=== PATIENT | male | born 1980 | race Caucasian/White ===

== ENCOUNTER 2017-03-18 02:25 | Emergency (ER) | payer BC ==
[~2017-03-18] VITALS: Ht 167.6 cm; Wt 76.6 kg
[2017-03-18 03:35] LABS: HEMATOCRIT 45.5 % (38.0-50.0); MCH 30.7 PG (29.0-34.0); MCHC 35.6 G/DL (30.0-36.0); MCV 86.3 FL (86-99); MEAN PLAT.VOLUME 9.5 uM^3 (9.0-12.4); PLATELET COUNT 226 K/uL (156-360); RBC DIS.WIDTH-SD 37.9 % (39-53); RED BLOOD COUNT 5.27 M/uL (4.00-5.50); WHITE BLOOD COUNT 10.7 K/uL (4.1-10.2)
[2017-03-18 03:59] LABS: CHLORIDE 103 mEq/L (99-109); POTASSIUM 3.7 mEq/L (3.7-5.4); SODIUM 140 mEq/L (136-147)
[2017-03-18 04:01] LABS: GLUCOSE 97 mg/dL (70-99)
[2017-03-18 04:02] LABS: ANION GAP 16 MEQ/L (2-14)
[2017-03-18 04:04] LABS: SERUM ETHYL ALCOHOL 32 mg/dL
[2017-03-18 04:05] LABS: UREA NITROGEN (BUN) 12 mg/dL (9-23)
[2017-03-18 04:11] LABS: GFR ESTIMATE (CALCULATED) > 59 mL/min/
[2017-03-18 04:46] VITALS: BP 124/73
== END 2017-03-18 04:46 | disposition home or self-care (01) ==
LOC: EME 02:25
PROVIDERS: Emergency Medicine
DX: F32.9 Major depressive disorder, single episode, unspecified (principal); F43.20 Adjustment disorder, unspecified; Z63.0 Problems in relationship with spouse or partner
CPT/HCPCS: 80048; 85027; 90837; 99281; 99285; G0480